=== PATIENT | female | born 2000 | race Caucasian/White ===

== ENCOUNTER 2019-02-06 09:22 | Emergency (ER) | payer OTHER ==
[~2019-02-06] VITALS: Ht 160 cm; Wt 57.2 kg
[2019-02-06 09:24] VITALS: Ht 160 cm; Wt 57.2 kg
[2019-02-06 11:40] VITALS: BP 120/80
== END 2019-02-06 11:40 | disposition home or self-care (01) ==
LOC: ED 09:22
DX: S82.52XA Displaced fracture of medial malleolus of left tibia, initial encounter for closed fracture (principal); S82.62XA Displaced fracture of lateral malleolus of left fibula, initial encounter for closed fracture; V00.131A Fall from skateboard, initial encounter; Y93.51 Activity, roller skating (inline) and skateboarding; Y92.89 Other specified places as the place of occurrence of the external cause; Y99.8 Other external cause status
CPT/HCPCS: J3010; Q0092